=== PATIENT | female | born 1995 | race Caucasian/White ===

== ENCOUNTER → 2020-01-19 | Outpatient (CLI) | payer OTHER ==
--- NOTE | 2020-01-19 13:50 | RAD ---
Realtime grayscale and color Doppler ultrasonography of the abdomen was performed. History: Hepatitis C Comparison: None. Findings: The visualized portions of the liver are normal in appearance and echogenicity. The liver measures 12.5 cm. Portal vein flow is hepatopetal. No gallstones, pericholecystic fluid, or gallbladder wall thickening. No intra or extrahepatic biliary ductal dilation. The common bile duct is normal in diameter measuring 0.4 cm. The pancreas is normal in appearance, although the tail is not well visualized. The IVC and aorta are unremarkable at the level of the liver. The maximum diameter of the visualized abdominal aorta is 1.8 cm. The right kidney is normal in appearance, measuring 10.4 x 5.1 x 4.3 cm in length. The left kidney is normal in appearance, measuring 10.8 x 4.9 x 5.0 cm in length. 1.3 x 1.5 x 1.3 cm left renal cyst in the mid to upper pole. No hydronephrosis or perinephric fluid are seen bilaterally. The spleen is normal in appearance and measures 10.7 cm. Impression: Small left renal cyst. Otherwise unremarkable ultrasound examination of the abdomen. Electronically signed by: Frank Newell MD (01/19/2020 1:48 PM) [id number]
== END | disposition home or self-care (01) ==
LOC: US 12:48
PROVIDERS: ATTEND Nurse Practitioner Adult Health
DX: N28.1 Cyst of kidney, acquired (principal); B18.2 Chronic viral hepatitis C
CPT/HCPCS: 76700